=== PATIENT | male | born 1990 | race Caucasian/White ===

== ENCOUNTER 2019-09-03 18:23 | Emergency (ER) | payer MEDICAID, OTHER ==
[~2019-09-03] VITALS: Ht 180.3 cm; Wt 101.1 kg
--- NOTE | 2019-09-03 18:43 | NUR ---
Patietn from triage reports urinating blood for about 3 days or so. [place] sick and has been laying around. Patient appears uncomfortable. provider at bedside
--- NOTE | 2019-09-03 19:09 | NUR ---
Report given to Radha GONZALEZ, Urine sent to lab. Pending results.
--- NOTE | 2019-09-03 19:20 | NUR ---
iv start, fluids infusing,u rine sent to lab, labs drawn with iv start and pt to radiology via stretcher. Significant other at bedside
[2019-09-03 19:21] LABS: MEAN CORPUSCULAR HEMOGLOBIN 31.1 pg (27.5-34.5); MEAN CORPUSCULAR HGB CONC 34.8 g/dL (33.2-36.2); MEAN CORPUSCULAR VOLUME 89.4 fL (81-97); MEAN PLATELET VOLUME 8.2 fL (7.4-10.4); PLATELET COUNT 162 x10^3/uL (130-400); RED BLOOD COUNT 4.69 x10^6/uL (4.38-5.82)
[2019-09-03] MEDS ORDERED: SODIUM CHLORIDE 0.9% 1,000ML IVBOLUS ONE (19:30)
[2019-09-03] MEDS ORDERED: SODIUM CHLORIDE FLUSH 10ML SYR IVF ONE (19:30)
[2019-09-03 19:31] LABS: ALANINE AMINOTRANSFERASE 26 U/L (12-78); ALBUMIN 3.7 g/dL (3.4-5.0); ANION GAP 4 mmol/L (5-15); CALCIUM 8.3 mg/dL (8.5-10.1); CHLORIDE 103 mmol/L (98-107); CREATININE 1.55 mg/dL (0.7-1.3)
[2019-09-03 19:32] LABS: BASOPHILS # (AUTO) 0.01 x10^3/uL (0-0.1); BASOPHILS % (AUTO) 0 % (0-1); EOSINOPHILS # (AUTO) 0.01 x10^3/uL (0-0.4); EOSINOPHILS % (AUTO) 0 % (1-7); LYMPHOCYTES # (AUTO) 0.61 x10^3/uL (1-3.4); LYMPHOCYTES % (AUTO) 26 % (22-44); MD SCAN; MONOCYTES # (AUTO) 0.38 x10^3/uL (0.2-0.8); MONOCYTES % (AUTO) 16 % (2-9); NEUTROPHILS # (AUTO) 1.37 x10^3/uL (1.8-6.8); NEUTROPHILS % (AUTO) 58 % (42-75)
[2019-09-03 19:33] LABS: MICROSCOPIC INDICATED
[2019-09-03 19:34] LABS: ALKALINE PHOSPHATASE 55 U/L (45-117); BILIRUBIN,TOTAL 0.4 mg/dL (0.2-1.0); CREATINE KINASE, TOTAL 59 U/L (39-308); TOTAL PROTEIN 7.6 g/dL (6.4-8.2)
[2019-09-03 19:34] LABS: CULTURE INDICATED? YES
[2019-09-03 19:51] LABS: RAPID INFLUENZA A POSITIVE (Negative); RAPID INFLUENZA B Negative (Negative)
[2019-09-03 20:45] VITALS: BP 132/80
== END 2019-09-03 21:12 | disposition home or self-care (01) ==
LOC: ED 21:06
DX: N30.01 Acute cystitis with hematuria (principal); J10.1 Influenza due to other identified influenza virus with other respiratory manifestations; E86.0 Dehydration
CPT/HCPCS: 36415; 71046; 80053; 81001; 82550; 85025; 87086; 87400; 96360; 99284; J7030